=== PATIENT | male | born 1955 | race Caucasian/White ===

== ENCOUNTER 2017-01-06 23:42 | Emergency (ER) | payer BC ==
[2017-01-06 23:55] VITALS: BP 145/81
[2017-01-07] MEDS ORDERED: Amoxicillin/Clavulanate K 875-125 MG Tab PO ONE (00:56)
--- NOTE | 2017-01-07 01:05 | EDM.PDOC ---
ED HPI GENERAL MEDICAL PROBLEM - General Chief Complaint: ENT Problem Stated Complaint: EAR INFECTION Time Seen by Provider: 01/07/17 00:15 Source of Information: Reports: Patient, Family (), RN Notes Reviewed History Limitations: Reports: No Limitations - History of Present Illness INITIAL COMMENTS - FREE TEXT/NARRATIVE: The patient states that he has had right ear pain, along with pus coming from the right ear canal since yesterday afternoon. He states that the pain and swelling of his right ear has spread into his right cheek, right sinuses, around his right eye, to his right jaw. No recent fever. He states that he has been instilling previously prescribed neomycin/polymyxin B /hydrocortisone otic solution, 2-3 drops, 4-5 times a day, into his right ear canal for the past 1-2 days. The patient states that he gets similar symptoms 2-3 times a year, with the most recent episode this past July 2016. He states that he has a deformed right ear canal which predisposes him to getting otitis externa, and he reports that he was swimming 3 or 4 days ago. He states that he has not previously had a CT scan of his face. The patient does not currently have an ENT. His PCP is Dr. Hitlon, from [place]. Right Ear Pain Score (Numeric/FACES): 7 - Related Data Allergies Allergy/AdvReac Type Severity Reaction Status Date / Time atorvastatin calcium Allergy Muscle Verified 01/06/17 23:55 [From Lipitor] Aches colesevelam HCl Allergy Muscle Verified 01/06/17 23:55 [From WelChol] Aches pravastatin Allergy Muscle Verified 01/06/17 23:55 Aches Home Meds: Home Meds Carvedilol [Coreg] 6.25 mg PO BID 04/19/15 [History] Clopidogrel Bisulfate [Clopidogrel] 1 tab PO DAILY 04/19/15 [History] Insulin Glarg,Human.Rec.Analog [LantUS Solostar] 30 units SUBCUT BEDTIME [History] Insulin Lispro [HumaLOG] 12 unit SQ ASDIRECTED 04/19/15 [History] Lisinopril 40 mg PO DAILY 04/19/15 [History] amLODIPine [Norvasc] 1 tab PO DAILY 04/19/15 [History] Ezetimibe [Zetia] 10 mg PO DAILY 01/06/17 [History] Amoxicillin/Potassium Clav [Augmentin 875-125 Tablet] 1 tab PO Q12H #10 tablet 01/07/17 [Rx] Past Medical History HEENT History: Reports: Impaired Vision, Other (See Below) Other HEENT History: short right ear canal, frequent right ear infection Cardiovascular History: Reports: CAD, High Cholesterol, Hypertension Gastrointestinal History: Reports: GERD Endocrine/Metabolic History: Reports: Diabetes, Type II - Past Surgical History HEENT Surgical History: Reports: Oral Surgery ([place] teeth extraction), Tonsillectomy Cardiovascular Surgical History: Reports: Coronary Artery Stent (x 2) Social & Family History - Family History Endocrine/Metabolic: Reports: Diabetes, type II - Tobacco Use Smoking Status *Q: Former Smoker Years of Tobacco use: 25 Packs/Tins Daily: 1 Used Tobacco, but Quit: Yes Month Tobacco Last Used: 2015 - Caffeine Use Caffeine Use: Reports: Coffee - Alcohol Use Alcohol Use History: No Days Per Week of Alcohol Use: 0 - Recreational Drug Use Recreational Drug Use: No - Living Situation & Occupation Living situation: Reports: , with Spouse Occupation: Retired ED ROS ENT - Review of Systems Review Of Systems: See Below Constitutional: Reports: No Symptoms HEENT: Reports: No Symptoms Respiratory: Reports: No Symptoms Cardiovascular: Reports: No Symptoms Endocrine: Reports: No Symptoms GI/Abdominal: Reports: No Symptoms : Reports: No Symptoms Musculoskeletal: Reports: No Symptoms Skin: Reports: No Symptoms Neurological: Reports: No Symptoms Psychiatric: Reports: No Symptoms Hematologic/Lymphatic: Reports: No Symptoms Immunologic: Reports: No Symptoms ED EXAM, ENT - Physical Exam Exam: See Below Exam Limited By: No Limitations General Appearance: Alert, WD/WN, No Apparent Distress Eye Exam: Bilateral Eye: Normal Inspection Ears: Other (No visible abnormality to the external right ear, such as swelling , or erythema. The right external ear canal is swollen shut, although there is no associated erythema. No visible purulent drainage. The pain is elicited to the right external canal with tugging on the auricle, and the canal is tender to manipulation with the otic speculum. Inspection of the right tympanic membrane was not possible. The left external ear and tympanic membrane were normal.) Nose: Normal Inspection, Normal Mucousa Mouth/Throat: Normal Inspection, Normal Gums, Normal Lips, Normal Oropharynx, Normal Teeth Head: Atraumatic, Normocephalic Neck: Normal Inspection, Supple, Non-Tender, Full Range of Motion. No: Lymphadenopathy (L), Lymphadenopathy (R) Course - Vital Signs Last Recorded V/S: Last Vital Signs Temp 36.8 C 01/06/17 23:52 Pulse 72 01/06/17 23:52 Resp 16 01/06/17 23:52 BP 145/81 H 01/06/17 23:52 Pulse Ox 96 01/06/17 23:52 - Orders/Labs/Meds Meds: Medications Discontinued Medications Generic Name Dose Route Start Last Admin Trade Name Shazia PRN Reason Stop Dose Admin Amoxicillin/Clavulanate Potassium 1 tab 01/07/17 00:56 01/07/17 01:05 Augmentin 875 Mg/125 Mg PO 01/07/17 00:57 1 tab ONETIME ONE Administration - Re-Assessments/Exams Free Text/Narrative Re-Assessment/Exam: 01/07/17 00:57 As the patient has an anatomically abnormal right external auditory canal, I am unable to determine if he has right otitis externa, or right otitis media, neither, or both. His external auditory canal, while extremely narrow, is not erythematous, and I see no purulence emanating, as the patient has suggested. It is quite tender, however, suggesting an inflammatory process. I believe it would be prudent to start the patient on oral Augmentin, and I will refer him to ENT in [place]. Departure - Departure Time of Disposition: 00:58 Disposition: Home, Self-Care 01 Condition: Good Clinical Impression: Right ear pain - Discharge Information Prescriptions: Amoxicillin/Potassium Clav [Augmentin 875-125 Tablet] 1 tab PO Q12H #10 tablet Instructions: Earache Referrals: PCP,Not In Area [Primary Care Provider] - Casey Arevalo MD [Physician] - Forms: ED Department Discharge Additional Instructions: You were seen in the emergency room for pus coming from your right ear canal. On examination, your canal is swollen shut, however, there was no redness, and no pus was seen. The cause of your pain has not been determined. You have been started on the antibiotic Augmentin. Take one tablet every 12 hours, as prescribed. You should continue to use the eardrops in your right ear, as you have been. Follow-up with the ENT Dr. Arevalo at the next available appointment. If any other problems, please do not hesitate to return to the ER.
== END 2017-01-07 01:10 | disposition home or self-care (01) ==
LOC: JD.ED 23:42
DX: H92.01 Otalgia, right ear (principal); I25.10 Atherosclerotic heart disease of native coronary artery without angina pectoris; E78.00 Pure hypercholesterolemia, unspecified; I10 Essential (primary) hypertension; K21.9 Gastro-esophageal reflux disease without esophagitis; E11.9 Type 2 diabetes mellitus without complications; Z88.8 Allergy status to other drugs, medicaments and biological substances; Z79.899 Other long term (current) drug therapy; Z79.4 Long term (current) use of insulin; Z98.890 Other specified postprocedural states; Z87.891 Personal history of nicotine dependence
CPT/HCPCS: 99283; A9270